=== PATIENT | female | born 1980 | race Caucasian/White ===

== ENCOUNTER 2016-09-26 08:22 | Inpatient (IN) | payer OTHER ==
[~2016-09-26 08:22] MED LIST: Dinoprostone* 10 MG VAG.SUPP VAGINAL ONE
[2016-09-26] MEDS ORDERED: Nalbuphine* 20 MG/ML 1 ML VIAL IV PRN (14:03)
[2016-09-26] MEDS ORDERED: Promethazine TAB* 25 MG PO ONE (14:03)
[2016-09-26 14:34] LABS: Hematocrit 37 % (35-47); Hemoglobin 12.5 g/dl (12.0-16.0); Mean Corpuscular HGB Conc 34 g/dl (31-36); Mean Corpuscular Hemoglobin 30 pg (27-31); Mean Corpuscular Volume 90 fL (80-97); Mean Platelet Volume 9 um3 (7.4-10.4); Red Blood Count 4.16 10^6/ul (4.0-5.4); Red Cell Distribution Width 13 % (10.5-15); White Blood Count 12.7 10^3/ul (3.5-10.8)
[2016-09-26] MEDS ORDERED: fentaNYL* 50 MCG/ML 2 ML VIAL (100 MCG VIAL) IV ONE (15:27)
[2016-09-26] MEDS ORDERED: fentaNYL* 50 MCG/ML 2 ML VIAL (100 MCG VIAL) ONE (15:30)
[2016-09-26] MEDS ORDERED: OBEPIDURAL* 250 ML ONE (16:46)
[2016-09-26] MEDS ORDERED: Phenylephrine IV* 40 MCG/ML 10 ML SYRINGE IV PUSH PRN ×2 (18:20)
[2016-09-26] MEDS ORDERED: EPHEDrine (Pressors)* 50 MG/ML VIAL IV PUSH PRN ×2 (18:20)
[2016-09-26] MEDS ORDERED: Oxytocin in LR* 20 UNITS/1,000 ML BAG IVPB ONE (20:34)
[2016-09-26] MEDS ORDERED: Oxytocin in LR* 20 UNITS/1,000 ML BAG IVPB SCH (21:00)
[2016-09-27] MEDS ORDERED: Acetaminophen TAB* 325 MG PO PRN (08:14)
[2016-09-27] MEDS ORDERED: Dibucaine 1% 28.35 GM TUBE PR PRN (08:14)
[2016-09-27] MEDS ORDERED: RHO D Immune Globulin (HUMAN)* 300 MCG = 1,500 I.U. INJ IM ONE (08:14)
[2016-09-27] MEDS ORDERED: Witch Hazel PAD* JAR TOPICAL PRN (08:14)
[2016-09-27] MEDS ORDERED: oxyCODONE/Acetamin 5/325 MG* TAB PO PRN (08:14)
[2016-09-27] MEDS ORDERED: Oxytocin in LR* 20 UNITS/1,000 ML BAG IVPB SCH (09:00)
[2016-09-27] MEDS: Docusate CAP* 100 MG PO SCH ×3 (09:29→19:53)
[2016-09-27] MEDS: Ibuprofen TAB* 600 MG PO PRN ×2 (09:29→17:56)
[2016-09-27] MEDS: OBEPIDURAL* 250 ML EPIDURAL SCH (19:48)
--- NOTE | 2016-09-27 20:48 | PTEDU ---
Patient Name: LOTTIE RIVERS LOTTIE RIVERS selected video: Never Ever Shake a Baby to view on 09/27/2016 at 8:47:41 PM from [facility] [id number]
[2016-09-28] MEDS: Docusate CAP* 100 MG PO SCH ×3 (08:03→20:36)
[2016-09-28] MEDS: Ibuprofen TAB* 600 MG PO PRN ×2 (08:03→14:00)
[2016-09-28] MEDS ORDERED: Ferrous Gluconate TAB* 324 MG TAB PO SCH (09:00)
[2016-09-28 09:09] LABS: Hematocrit 33 % (35-47); Hemoglobin 10.7 g/dl (12.0-16.0); Mean Corpuscular HGB Conc 33 g/dl (31-36); Mean Corpuscular Hemoglobin 30 pg (27-31); Mean Corpuscular Volume 91 fL (80-97); Mean Platelet Volume 8 um3 (7.4-10.4); Red Blood Count 3.59 10^6/ul (4.0-5.4); Red Cell Distribution Width 13 % (10.5-15); White Blood Count 12.7 10^3/ul (3.5-10.8)
[2016-09-28] MEDS: OBEPIDURAL* 250 ML EPIDURAL SCH (19:23)
--- NOTE | 2016-09-29 07:01 | PTEDU ---
Patient Name: LOTTIE RIVERS LOTTIE RIVERS selected video: Follow Me Mum: The Onof[facility] to Successful to view on 2016 at 7:01:00 AM from [id number]
--- NOTE | 2016-09-29 07:22 | PTEDU ---
Patient Name: LOTTIE RIVERS LOTTIE RIVERS selected video: BBOB: Bonding Through Infant Massage to view on 09/29/2016 at 7:21:0 9 AM [id number]
[2016-09-29 09:22] VITALS: BP 131/79
[2016-09-29] MEDS: Docusate CAP* 100 MG PO SCH (09:26)
== END 2016-09-29 12:25 | disposition home or self-care (01) | DRG 560 ==
LOC: MCHOBOUT 08:22 → MCHOB 09:15
PROVIDERS: ADMIT Midwife; ATTEND Midwife
PROC: 10E0XZZ Delivery of Products of Conception, External Approach (ICD-10-PCS; principal; 2016-09-27)
PROC: 3E033VJ Introduction of Other Hormone into Peripheral Vein, Percutaneous Approach (ICD-10-PCS; 2016-09-27)
PROC: 3E0P7GC Introduction of Other Therapeutic Substance into Female Reproductive, Via Natural or Artificial Opening (ICD-10-PCS; 2016-09-27)
PROC: 0KQM0ZZ Repair Perineum Muscle, Open Approach (ICD-10-PCS; 2016-09-27)
DX: O48.0 Post-term pregnancy (principal); O09.523 Supervision of elderly multigravida, third trimester; O70.1 Second degree perineal laceration during delivery; Z3A.41 41 weeks gestation of pregnancy; Z37.0 Single live birth
CPT/HCPCS: 36415; 85025; 85027; 85461; 86850; 86900; 86901; A9270-GY; J2300; J2790; J3010

== ENCOUNTER 2019-06-18 01:19 | Inpatient (IN) | payer OTHER ==
--- NOTE | 2019-06-18 02:17 | HP ---
General Information - Reason for Visit IUP at 39-6/7 with pre-labor rupture of membranes to clear fluid - General Information Maternal Age: 38 Grav: 4 Para: 1 SAB: 2 IEA: 0 Estimated Due Date: 06/19/19 Determined By: LMP Gestational Age in Weeks/Days: 39-6/7 Maternal Blood Type and Rh: O Negative - Results this Serology/RPR Result: Non-Reactive Rubella Result: Immune HBsAg Result: Negative HIV Result: Negative GBS Culture Result: Negative Past Medical History Delivery History: See Records Delivery History Comment: 2001 1st trimester MAB 08/2016 9lbs 2oz male. Delivered at [facility] [place], [place] by Claude Alvarez LM 11/2017 1st trimester MAB Pertinent Past Medical History: See Records Past Medical History Comment: Back pain with sciatica. Followed by chiropractor Urinary stress incontinence since first delivery Pertinent Past Surgical History: See Records Past Surgical History Comment: [place] tooth extraction Pertinent Family History: See Records Family History Comment: Mother: Rheumatoid arthritis MGM: , Florence Gehrigs Disease - Antepartal Records Antepartal Records: Reviewed, Complicated by: - Rh negative, received RhoGAM at 28 weeks. AMA age 38 at [facility] Review of Systems Constitutional: Comfortable CV Complaint: No Respiratory: Shortness of Breath: No Gastrointestinal: No Nausea/Vomiting, Normal Bowel Movement Genitourinary: Leaking Fluid - since 06/17/2019 at 2345, No Bleeding Musculoskeletal: No Complaint, No Epigastric Pain Neurological: No Headache, No Visual Changes Movement: Normal Exam Allergies/Adverse Reactions: Allergies No Known Allergies Allergy (Verified 09/26/16 08:53) Vital Signs 06/18/19 01:56 Temperature 98.3 F Pulse Rate 73 Respiratory 18 Rate Blood Pressure 115/78 (mmHg) O2 Sat by Pulse 98 Oximetry - Measurements Height: 6 ft Weight: 263 lb Weight in lbs: 263.068075 Body Mass Index (BMI): 35.6 Pre- Weight: 211 lb Weight Gained This : 52 lbs and 0 ozs - Exam Breast: Breast Exam Deferred CVA: No CVA Tenderness Extremities: No Edema Heart: Normal Rhythm/Heart Sounds HEENT: No Significant Findings Lungs: Clear Bilaterally Rectal: Rectal Exam Deferred Reflexes: DTR 2+ Thyroid: No Thyromegaly - Abdominal Exam Abdomen Exam: Non-Tender, Fundal Height Consistent with Dates - Ultrasound/Biophysical Profile Ultrasound Status: Bedside Exam Ultrasound Findings: Vtx presentation confirmed Targeted Exam Findings See L&D Outpatient Visit Provider Note for Findings: N/A Estimated Weight: 9lbs by Caty Presenting Part: Vertex - by bedside sono Membrane Status: SROM Amniotic Fluid Evaluation: Gross Rupture Sterile Speculum Exam: Not done Bleeding/Discharge: None EFM Findings - External Monitor Findings Baseline Heart Rate: 130 External Monitor Findings: Accelerations Present, No Pattern of Variable or Late Decelerations, Variability Moderate, Baseline Stable External Monitor Findings Comment: No evidence of metabolic acidemia Contractions: Regular, Mild Contraction Frequency: q 6 min Assessment/Plan - Assessment IUP at 39-6/7 with pre-labor rupture of membranes to clear fluid GBS negative No evidence of metabolic acidemia - Plan Plan: Observe, Admit - Anticipate Vaginal Delivery Plan Comment: Discussed pre-labor rupture of membranes at length and recommendations including induction of labor to decrease the risk of infection to both mother and fetus. Pt is GBS negative and has a strong preference to give her body some time to go into labor on its own without intervention. Also feels like trying to sleep for a while would be helpful to her prior to active labor as she didn' t get sleep after her water breaking at 2345. Vtx confirmed by limited bedside sono. VE deferred to minimize risk of infection. Encouraged rest. Re-eval in AM or sooner PRN onset active labor - Date/Time of Admission Date of Admission: 06/18/19 Time of Admission: 02:03
[2019-06-18 02:43] LABS: Urine Benzodiazepine Screen None Detected (None Detect); Urine Opiates Screen None Detected (None Detect)
[2019-06-18 04:33] LABS: ABS Eosinophils 0.1 10^3/ul (0-0.6); ABS Lymphocytes 1.8 10^3/ul (1.0-4.8); ABS Monocytes 0.5 10^3/ul (0-0.8); ABS Neutrophils 5.2 10^3/ul (1.5-7.7); Hematocrit 34 % (35-47); Hemoglobin 12.1 g/dL (12.0-16.0); Lymphocyte % 24.3 %; Mean Corpuscular HGB Conc 36 g/dL (31-36); Mean Corpuscular Hemoglobin 32 pg (27-31); Mean Corpuscular Volume 89 fL (80-97); Mean Platelet Volume 8.1 fL (7.4-10.4); Platelet Count 251 10^3/uL (150-450); Red Blood Count 3.83 10^6 /uL (3.70-4.87); Red Cell Distribution Width 13 % (10-15); White Blood Count 7.6 10^3/uL (3.5-10.8)
--- NOTE | 2019-06-18 05:05 | PN ---
Progress Note - Progress Note Date of Service: 06/18/19 Note: S: Pt reports increased intensity of UCs. Desires VE as she's consider options for pain relief in labor and may desire an epidural at some point. RN has placed an IV and sent labs. O: BP 115/78 HR 74 RR 18 T 98.3 FHT 125bpm. Moderate variability. +Accels. No decels. UCs q 3-4, mild-moderate on palpation VE 3-4/70%/vtx -1, clear fluid A: IUP at 39-6/7 with SROM in latent labor No evidence of metabolic acidemia P: Pt reports that at this time she's coping well. Will continue expectant management for now
[2019-06-18] MEDS ORDERED: OBEPIDURAL* 250 ML EPIDURAL ONE (05:41)
[2019-06-18] MEDS ORDERED: Famotidine TAB* 20 MG PO PRN (06:24)
[2019-06-18] MEDS ORDERED: Lactated Ringers 1000 ML Bag* 1,000 ML IV ONE (06:24)
[2019-06-18] MEDS ORDERED: Sodium Citrate/Citric Acid* 15 ML UDC PO PRN (06:24)
[2019-06-18] MEDS ORDERED: Lactated Ringers 1000 ML Bag* 1,000 ML IV SCH ×2 (07:00→19:00)
[2019-06-18] MEDS ORDERED: OBEPIDURAL* 250 ML EPIDURAL SCH (07:00)
--- NOTE | 2019-06-18 07:12 | PN ---
Progress Note - Progress Note Date of Service: 06/18/19 Note: S: Pt comfortable s/p CEI placement. Resting comfortably in bed. O: BP 122/73 HR 63 FHT 120bpm. Moderate variability. +Accels. No decels UCs q 2-5 min, moderate VE 4cm/70%/vtx -2, clear fluid A: IUP at 39-6/7 in labor No evidence of metabolic acidemia P: Encouraged rest. Close monitoring of maternal/ status. Report to Pankaj Hidalgo CNM who will assume care at 0800
--- NOTE | 2019-06-18 10:23 | PN ---
Progress Note - Progress Note Date of Service: 06/18/19 SOAP: Subjective: Pt very comfortable with epidural. Not aware of ctx. Has not been able to sleep however. at bedside. Objective: Cervix: 5cm/ 90%/ -2/ vtx/ bulging forebag Fluid clear FHR: Baseline 120/ moderate variability/ + accels/ no decels UCs: 4-6 minutes Temp:98.2, BP: 115/68 Assessment: Pt is 38 year old at 39 6/7 weeks gestation in active labor, comfortable with epidural, membranes ruptured 10 hours. No evidence of acidemia or chorioamnionitis. Plan: Forebag ruptured to clear fluid. Will continue to monitor ctx pattern but expect that it may garbage pick up worker now that membranes fully ruptured. Anticipate progression to full dilation and .
--- NOTE | 2019-06-18 12:05 | PN ---
Progress Note - Progress Note Date of Service: 06/18/19 SOAP: Subjective: Pt reports feeling some pressure with ctx, nothing in between. Comfortable. Objective: FHR: Baseline 125/ moderate variability/ + accels/ no decels UCs: 3-5 minutes Fluid clear BP: 119/75, Temp: 98.2 Cervical exam deferred Assessment: No evidence of chorioamnionitis or acidemia. Comfortable with epidural Plan: Cervical exam deferred at this time, as pt was making progress and has had membranes ruptured for about 12 hours. Will recheck in about 2 hours if no change prior.
--- NOTE | 2019-06-18 14:14 | PN ---
Progress Note - Progress Note Date of Service: 06/18/19 SOAP: Subjective: Pt fairly comfortable, reports pressure with some ctx but not all. Objective: FHR: Baseline 130/ moderate variability/ + accels/ no decels Ctx: 2-6 minutes, coupling Cervix: 6cm/ 100%/ 0 station Assessment: Pt making slow but steady progress. Ctx spacing and coupling. No evidence of acidemia or chorioamnionitis. Plan: Will start low dose Pitocin after discussing risks and benefits with pt. Anticipate progression to full dilation and .
[2019-06-18] MEDS ORDERED: Oxytocin in LR* 20 UNITS/1,000 ML BAG IVPB SCH ×2 (15:00→19:00)
[2019-06-18] MEDS ORDERED: Dibucaine 1% 28.35 GM TUBE PR PRN (18:11)
[2019-06-18] MEDS ORDERED: Acetaminophen TAB* 325 MG PO PRN (18:11)
[2019-06-18] MEDS ORDERED: RHO D Immune Globulin (HUMAN)* 300 MCG = 1,500 I.U. INJ IM ONE (18:11)
[2019-06-18] MEDS ORDERED: Glycerin ADULT SUPP PR PRN (18:11)
[2019-06-18] MEDS ORDERED: Witch Hazel PAD* JAR TOPICAL PRN (18:11)
[2019-06-18] MEDS: Ibuprofen TAB* 600 MG PO PRN (18:41)
[2019-06-18] MEDS: Docusate CAP* 100 MG PO SCH (20:22)
--- NOTE | 2019-06-18 22:20 | PROCNOTE ---
[facility] OB: Delivery Note - Delivery A Date of : 06/18/19 Time of : 16:01 [place] Sex: Female Weight at : 3.785 kg Score 1 Minute: 9 Score 5 Minutes: 9 Gestational Age in Weeks and Days at Delivery: 39 Weeks and 6 Days Delivery Method: Spontaneous Vaginal Labor: Spontaneous Did Patient attempt ?: N/A, No Previous Amniotic Fluid: Clear Estimated Blood Loss: 300 Anesthesia/Analgesia: CEI for Labor Delivered By: Sheila Jackson - Nursery Level of Nursery: Regular/Bedside - Perineum Perineal Injury: Perineal Laceration, 1st Degree Perineal Repair: By Delivering Practioner - Events Delivery Events of Note: Pitocin During Labor - Additional Delivery Notes Additional Delivery Notes: Pt with prelabor rupture of membranes, declined augmentation. Eventually active labor commenced and pt requested and received an epidural with good relief of pain. Pt made steady progress, although eventually ctx spaced out so Pitocin augmentation was initiated. Pt eventually reached full dilation and spontaneous urge to push. Pt pushed effectively with steady descent. brought to [facility] and delivered in direct OP position. Shoulders followed head without difficulty. placed on maternal abdomen, dried and stimulated with vigorous cry and good tone, FHR> 100. After cord pulsation ceased cord clamped x2 and cut by infant's father. Examination of the perineum revealed 1st degree laceration. Repair done in the usual fashion with 3-0 Rapide suture, resulting in good hemostasis and tissue approximation. Mother and stable at this time, anticipate normal course.
[2019-06-19] MEDS: Ibuprofen TAB* 600 MG PO PRN ×4 (00:19→18:46)
[2019-06-19 06:40] LABS: ABS Eosinophils 0.1 10^3/ul (0-0.6); ABS Lymphocytes 2.3 10^3/ul (1.0-4.8); ABS Monocytes 0.6 10^3/ul (0-0.8); ABS Neutrophils 6.7 10^3/ul (1.5-7.7); Eosinophil % 0.7 %; Hematocrit 32 % (35-47); Hemoglobin 11.1 g/dL (12.0-16.0); Lymphocyte % 23.6 %; Mean Corpuscular HGB Conc 34 g/dL (31-36); Mean Corpuscular Hemoglobin 31 pg (27-31); Mean Corpuscular Volume 90 fL (80-97); Mean Platelet Volume 8.3 fL (7.4-10.4); Platelet Count 226 10^3/uL (150-450); Red Blood Count 3.57 10^6 /uL (3.70-4.87); Red Cell Distribution Width 13 % (10-15); White Blood Count 9.8 10^3/uL (3.5-10.8)
[2019-06-19] MEDS: Ferrous Gluconate TAB* 324 MG TAB PO SCH ×2 (07:38→20:35)
[2019-06-19] MEDS: Docusate CAP* 100 MG PO SCH ×3 (09:30→20:35)
[2019-06-19] MEDS ORDERED: RHO D Immune Globulin (HUMAN)* 300 MCG = 1,500 I.U. INJ IM ONE ×2 (15:00)
[2019-06-20] MEDS: Docusate CAP* 100 MG PO SCH (08:09)
[2019-06-20] MEDS: Ferrous Gluconate TAB* 324 MG TAB PO SCH (09:00)
[2019-06-20] MEDS: Ibuprofen TAB* 600 MG PO PRN (11:04)
[2019-06-20 13:24] VITALS: BP 124/74
== END 2019-06-20 13:19 | disposition home or self-care (01) | DRG 560 ==
LOC: MCHOBOUT 01:19 → MCHOB 02:03
PROVIDERS: ADMIT Midwife; ATTEND Midwife
PROC: 10E0XZZ Delivery of Products of Conception, External Approach (ICD-10-PCS; principal; 2019-06-18)
PROC: 4A1HXCZ Monitoring of Products of Conception, Cardiac Rate, External Approach (ICD-10-PCS; 2019-06-18)
PROC: 0HQ9XZZ Repair Perineum Skin, External Approach (ICD-10-PCS; 2019-06-18)
DX: O70.0 First degree perineal laceration during delivery (principal); Z37.0 Single live birth; Z3A.39 39 weeks gestation of pregnancy; Z67.41 Type O blood, Rh negative
CPT/HCPCS: 36415; 80307; 85025; 85461; 86850; 86900; 86901; A9270-GY; J2790